=== PATIENT | male | born 1980 | race Caucasian/White ===

== ENCOUNTER 2017-09-30 09:18 | Emergency (ER) | payer BC, OTHER ==
[~2017-09-30] VITALS: Ht 177.8 cm; Wt 93.0 kg
[~2017-09-30 09:18] MED LIST: CHOL400C2 PO; CYAN10005 PO; GARL1CAP3 PO; NEBI5TAB2 PO; VITA80003 PO; ZINC10LO4 PO
[2017-09-30 09:30] VITALS: BP 135/88
[2017-09-30] MEDS ORDERED: diazePAM 5 MG TABLET PO ONE (10:15)
--- NOTE | 2017-09-30 10:42 | RAD ---
EXAM: Thoracic spine 3 views. HISTORY: Back pain. Lifting injury. COMPARISON: None. FINDINGS: Alignment is maintained. No fractures are identified. Intervertebral disc heights are maintained. IMPRESSION: 1. No fracture or malalignment.
[2017-09-30] MEDS ORDERED: DICL100G18 TP (11:06)
[2017-09-30] MEDS ORDERED: BACL10TA PO (11:06)
--- NOTE | 2017-09-30 11:06 | PHYS DOC ---
Past History Past Medical History: Hypertension, Other Past Surgical History: No Surgical History Alcohol Use: Heavy Drug Use: None Adult General Chief Complaint Chief Complaint: BACK INJURY HPI HPI Patient is a 37 year old M who presents with right-sided back pain started after lifting a heavy bucket 3 days ago. He states that he reinjured the same area all lifting an animal. His symptoms are worse with movement and improved with rest and positioning. His pain does not radiate and is not associated with any other symptoms. He does have a history of ankylosing spondylitis. Review of Systems Review of Systems Constitutional: Denies fever or chills [] Eyes: Denies change in visual acuity, redness, or eye pain [] HENT: Denies nasal congestion or sore throat [] Respiratory: Denies cough or shortness of breath [] Cardiovascular: No additional information not addressed in HPI [] GI: Denies abdominal pain, nausea, vomiting, bloody stools or diarrhea [] : Denies dysuria or hematuria [] Musculoskeletal: Negative except history of present illness Integument: Denies rash or skin lesions [] Neurologic: Denies headache, focal weakness or sensory changes [] Endocrine: Denies polyuria or polydipsia [] All other systems were reviewed and found to be within normal limits, except as documented in this note. Family History Family History No pertinent family medical history was reported Current Medications Current Medications Current Medications Medications (Trade) Dose Ordered Sig/Harman Start Time Stop Time Status Last Admin Dose Admin Diazepam (Valium) 10 mg 1X ONCE 09/30/17 10:15 09/30/17 10:16 DC 09/30/17 10:03 10 MG Allergies Allergies Allergies Coded Allergies Type Severity Reaction Last Updated Verified codeine Allergy Intermediate 05/11/14 Yes prochlorperazine Allergy Intermediate 05/11/14 Yes Physical Exam Physical Exam Constitutional: Well developed, well nourished, no acute distress, non-toxic appearance. [] HENT: Normocephalic, atraumatic Eyes: EOMI, conjunctiva normal, no discharge. [] Neck: Normal range of motion, no tenderness, supple, no stridor. [] Cardiovascular:Heart rate regular rhythm, no murmur [] Lungs & Thorax: Bilateral breath sounds clear to auscultation [] Skin: Warm, dry, no erythema, no rash. [] Back: Right thoracic paraspinal muscle spasm noted with tenderness to palpation in the area Extremities: No tenderness, no cyanosis, no clubbing, ROM intact, no edema. [] Neurologic: Alert and oriented X 3, normal motor function, normal sensory function, no focal deficits noted. [] Psychologic: Affect normal, judgement normal, mood normal. [] Current Patient Data Vital Signs Vital Signs Date Time Temp Pulse Resp B/P (MAP) Pulse Ox O2 Delivery O2 Flow Rate FiO2 09/30/17 09:30 87 16 99 Room Air EKG EKG [] Radiology/Procedures Radiology/Procedures Thoracic spine x-ray Impressions: No acute disease noted per radiology report Course & Med Decision Making Course & Med Decision Making Pertinent Labs and Imaging studies reviewed. (See chart for details) [] Dragon Disclaimer Dragon Disclaimer This electronic medical record was generated, in whole or in part, using a voice recognition dictation system. Departure Departure: Impression: Primary Impression: Spasm of thoracic back muscle Disposition: HOME, SELF-CARE Condition: STABLE Referrals: DOUGLAS HELMS (PCP) Patient Instructions: Back Exercises Additional Instructions: Villa was seen in the emergency department for back pain. No emergency medical condition was found on history or physical exam. He did have normal x-rays of his spine. His symptoms are most consistent with a muscle spasm. He is given a prescription for muscle relaxer and Voltaren gel for his pain. He was encouraged to continue daily activities and avoid heavy lifting. He was advised follow-up with his primary care doctor in the next 3-5 days for further management. Scripts Diclofenac Sodium (VOLTAREN) 100 Gm Gel..gram. 1 GM TP QID, #100 GM 2 Refills Prov: WILBER WEIR MD 09/30/17 Baclofen (BACLOFEN) 10 Mg Tablet 1 TAB PO TID for 7 Days, #21 TAB 2 Refills Prov: WILBER WEIR MD 09/30/17 WILBER WEIR MD Sep 30, 2017 11:06
== END 2017-09-30 11:12 | disposition home or self-care (01) ==
LOC: ER 09:18
DX: M62.830 Muscle spasm of back (principal); I10 Essential (primary) hypertension; F10.20 Alcohol dependence, uncomplicated; Z88.5 Allergy status to narcotic agent; Z88.8 Allergy status to other drugs, medicaments and biological substances
CPT/HCPCS: 72072; 99284

== ENCOUNTER 2018-04-02 19:18 | Emergency (ER) | payer BC ==
[~2018-04-02] VITALS: Ht 177.8 cm; Wt 88.3 kg
[~2018-04-02 19:18] MED LIST changes: +BACL10TA PO; +DICL100G18 TP
--- NOTE | 2018-04-02 19:25 | ED.ADGEN ---
Past History Past Medical History: Fibromyalgia, Hypertension, Other Past Surgical History: No Surgical History Alcohol Use: Heavy Drug Use: None Adult General Chief Complaint Chief Complaint ".. I got this back and abd. pain... Here on the Lt... more" ". I ve had lots of gut problems.. I usually have diarrhea every day.. but I have not gone today... ".." I am retired from the [employer] for my fibromyalgia and other issues... " HPI HPI Patient is a 37 year old male who presents with above hx and complaints generalized abdomen pain with some localization to Lt. lower quadrant. Pt. denies bad food intact. No hx of travel. No hx. changes meds. No hx of specific ill contacts. Pt. has hx of chronic diarrhea and irritable bowel symptoms. Pt. denies any dark stools. No hx of colon exam with biopsy. Pt. does have hx fibromyalgia. Has had recent course of antibiotics or ear infection and is on day 8 of the antibiotic. Pt. still having some dizziness associated with the bilateral ear infections. Pt. normally follows with Dr. Cruz. Review of Systems Review of Systems Constitutional: Denies fever or chills [] Eyes: Denies change in visual acuity, redness, or eye pain [] HENT: Denies nasal congestion or sore throat [] Hx. of recent ear infections. Respiratory: Denies cough or shortness of breath [] Cardiovascular: No additional information not addressed in HPI [] GI: Complaints of abdominal pain, nausea, . No vomiting, bloody stools or diarrhea [] Has some recent complaints of constipation. : Denies dysuria or hematuria [] Musculoskeletal: Denies back pain or joint pain []Chronic joint pain. Integument: Denies rash or skin lesions [] Neurologic: Hx face and headache,. Dizzy complaints , no focal weakness or sensory changes [] Endocrine: Denies polyuria or polydipsia [] All other systems were reviewed and found to be within normal limits, except as documented in this note. Family History Family History Both mother and father have kidney stones Current Medications Current Medications Current Medications Medications (Trade) Dose Ordered Sig/Harman Start Time Stop Time Status Last Admin Dose Admin Famotidine (Pepcid Vial) 20 mg 1X ONCE 04/02/18 21:00 04/02/18 21:01 DC 04/02/18 21:02 20 MG Ketorolac Tromethamine (Toradol 30mg Vial) 30 mg STK-MED ONCE 04/02/18 20:53 04/02/18 20:54 DC Lactated Ringer's 1,000 ml @ 1,000 mls/hr Q1H 04/02/18 20:40 04/02/18 21:39 DC 04/02/18 21:01 1,000 MLS/HR Magnesium Hydroxide (Milk Of Magnesia) 2,400 mg 1X ONCE 04/02/18 23:45 04/02/18 23:46 DC 04/02/18 00:09 2,400 MG Ondansetron HCl (Zofran) 8 mg 1X ONCE 04/02/18 21:00 04/02/18 21:01 DC 04/02/18 21:04 8 MG Allergies Allergies Allergies Coded Allergies Type Severity Reaction Last Updated Verified codeine Allergy Intermediate 05/11/14 Yes prochlorperazine Allergy Intermediate 05/11/14 Yes Physical Exam Physical Exam Constitutional: Well developed, well nourished, moderate to acute distress, non -toxic appearance. [] HENT: Normocephalic, atraumatic, bilateral external ears normal, oropharynx moist, no oral exudates, nose normal. []No obvious TM injection. No temporal art. tenderness Eyes: PERRLA, EOMI, conjunctiva normal, no discharge. [] Neck: Normal range of motion, no tenderness, supple, no stridor. [] Cardiovascular:Heart rate regular rhythm, no murmur [] Lungs & Thorax: Bilateral breath sounds equal at apexes on auscultation [] Abdomen: Bowel sounds normal, soft, generalized and some Lt. lower quadrant tenderness, no masses, no pulsatile masses. [] Distended. Some Lt flank pain on percussion. Skin: Warm, dry, no erythema, no rash. [] Back: No tenderness, Lt. CVA tenderness. [] Extremities: No tenderness, no cyanosis, no clubbing, ROM intact, no edema. [] No psoas or heel tap. Neurologic: Alert and oriented X 3, normal motor function, normal sensory function, no focal deficits noted. []DTR + 2 patella and brachial. Psychologic: Affect anxious, judgement normal, mood normal. [] Current Patient Data Vital Signs Vital Signs Date Time Temp Pulse Resp B/P (MAP) Pulse Ox O2 Delivery O2 Flow Rate FiO2 04/03/18 00:08 60 16 145/91 (109) 99 Room Air 04/02/18 20:09 98.0 Lab Results Laboratory Tests Test 04/02/18 20:05 04/02/18 20:41 Urine Collection Type Void Urine Color Straw Urine Clarity Clear Urine pH 6.5 Urine Specific [place] <=1.005 Urine Protein Neg (NEG-TRACE) Urine Glucose (UA) Neg mg/dL (NEG) Urine Ketones (Stick) Neg mg/dL (NEG) Urine Blood Neg (NEG) Urine Nitrite Neg (NEG) Urine Bilirubin Neg (NEG) Urine Urobilinogen Dipstick 0.2 mg/dL (0.2 mg/dL) Urine Leukocyte Esterase Neg (NEG) Urine RBC 0 /HPF (0-2) Urine WBC 0 /HPF (0-4) Urine Squamous Epithelial Cells Occ /LPF Urine Bacteria 0 /HPF (0-FEW) Urine Opiates Screen Neg (NEG) Urine Methadone Screen Neg (NEG) Urine Barbiturates Neg (NEG) Urine Phencyclidine Screen Neg (NEG) Urine Amphetamine/Methamphetamine Neg (NEG) Urine Benzodiazepines Screen Neg (NEG) Urine Cocaine Screen Neg (NEG) Urine Cannabinoids Screen Neg (NEG) Urine Ethyl Alcohol Neg (NEG) White Blood Count 7.7 x10^3/uL (4.0-11.0) Red Blood Count 4.88 x10^6/uL (4.30-5.70) Hemoglobin 16.8 g/dL (13.0-17.5) Hematocrit 47.7 % (39.0-53.0) Mean Corpuscular Volume 98 fL (79-100) Mean Corpuscular Hemoglobin 35 pg (25-35) Mean Corpuscular Hemoglobin Concent 35 g/dL (31-37) Red Cell Distribution Width 13.7 % (11.5-14.5) Platelet Count 188 x10^3/uL (140-400) Neutrophils (%) (Auto) 58 % (31-73) Lymphocytes (%) (Auto) 29 % (24-48) Monocytes (%) (Auto) 10 % (0-9) H Eosinophils (%) (Auto) 2 % (0-3) Basophils (%) (Auto) 1 % (0-3) Neutrophils # (Auto) 4.5 x10^3uL (1.8-7.7) Lymphocytes # (Auto) 2.2 x10^3/uL (1.0-4.8) Monocytes # (Auto) 0.8 x10^3/uL (0.0-1.1) Eosinophils # (Auto) 0.2 x10^3/uL (0.0-0.7) Basophils # (Auto) 0.1 x10^3/uL (0.0-0.2) Prothrombin Time 10.3 SEC (9.4-11.4) Prothrombin Time INR 1.0 (0.9-1.1) PTT 26 SEC (23-33) Sodium Level 140 mmol/L (136-145) Potassium Level 4.7 mmol/L (3.5-5.1) Chloride Level 102 mmol/L (98-107) Carbon Dioxide Level 30 mmol/L (21-32) Anion Gap 8 (6-14) Blood Urea Nitrogen 13 mg/dL (8-26) Creatinine 0.9 mg/dL (0.7-1.3) Estimated GFR (Cockcroft-Gault) 93.9 Glucose Level 85 mg/dL (70-99) Calcium Level 9.2 mg/dL (8.5-10.1) Total Bilirubin 0.6 mg/dL (0.2-1.0) Direct Bilirubin 0.1 mg/dL (0.0-0.2) Aspartate Amino Transferase (AST) 50 U/L (15-37) H Alanine Aminotransferase (ALT) 61 U/L (16-63) Alkaline Phosphatase 89 U/L (46-116) Total Protein 7.6 g/dL (6.4-8.2) Albumin 4.2 g/dL (3.4-5.0) Lipase 185 U/L (73-393) EKG EKG [] Radiology/Procedures Radiology/Procedures My interpretation of Acute abd. film shows increased stool. No free air under the diaphragm. CT of abd. Show no acute surgical process. No hydronephrosis. Increased stool. [] Course & Med Decision Making Course & Med Decision Making Pertinent Labs and Imaging studies reviewed. (See chart for details) Finish current antibiotics. Tylenol and Ibuprofen for pain. Clear fluid diet only x 48 hrs. Expect some diarrhea with the MOM. Return if continue pain for CT with contrast- eval. for other bowel problems. Consider Colon exam and biopsy. Return if any concerns. [] Final Impression Final Impression 1. Abd. Pain - Renal colic?[] 2. Hx Irritable Bowel 3. Fibromyalgia 4. Hx of recent Bilateral Ear Infections- on day 8 of antibiotics. 5. Elevated AST =50 6. Constipation Dragon Disclaimer Dragon Disclaimer This electronic medical record was generated, in whole or in part, using a voice recognition dictation system. DANITA MUNGUIA MD Apr 02, 2018 19:25
[2018-04-02] MEDS ORDERED: IV RINGERS SOLUTION,LACTATED 1,000 ML IV SCH (20:40)
[2018-04-02] MEDS ORDERED: KETOROLAC 30 MG/ML VIAL. ONE (20:53)
[2018-04-02 20:55] LABS: BARBITURATES NEG (NEG); BENZODIAZEPINES NEG (NEG); CANNABINOIDS NEG (NEG); COCAINE NEG (NEG); METHADONE NEG (NEG); OPIATES NEG (NEG); PHENCYCLIDINE NEG (NEG)
[2018-04-02 20:56] LABS: AMPHETAMINE/METHAMPHETAMINE NEG (NEG)
[2018-04-02 20:57] LABS: BACTERIA,URINE 0 /HPF (0-FEW); BILIRUBIN,URINE NEG (NEG); CLARITY,URINE CLEAR; COLOR,URINE STRAW; GLUCOSE,URINE NEG (NEG); NITRITE,URINE NEG (NEG); RBC,URINE 0 /HPF (0-2); SQUAMOUS EPITHELIAL CELL,UR OCC /LPF; UROBILINOGEN,URINE 0.2 mg/dL (0.2 mg/dL); WBC,URINE 0 /HPF (0-4)
[2018-04-02] MEDS ORDERED: ONDANSETRON PF 4 MG/2 ML VIAL. IV ONE (21:00)
[2018-04-02] MEDS ORDERED: KETOROLAC 30 MG/ML VIAL. IV ONE (21:00)
[2018-04-02] MEDS ORDERED: FAMOTIDINE 20 MG/2 ML VIAL IVP ONE (21:00)
[2018-04-02 21:01] LABS: BASO # 0.1 x10^3/uL (0.0-0.2); BASO % 1 % (0-3); EOS # 0.2 x10^3/uL (0.0-0.7); EOS % 2 % (0-3); HEMATOCRIT 47.7 % (39.0-53.0); HEMOGLOBIN 16.8 g/dL (13.0-17.5); LYMPH # 2.2 x10^3/uL (1.0-4.8); LYMPH % 29 % (24-48); MEAN CORPUSCULAR HEMOGLOBIN 35 pg (25-35); MEAN CORPUSCULAR HGB CONC 35 g/dL (31-37); MEAN CORPUSCULAR VOLUME 98 fL (79-100); MONO # 0.8 x10^3/uL (0.0-1.1); MONO % 10 % (0-9); NEUT # 4.5 x10^3uL (1.8-7.7); NEUT % 58 % (31-73); PLATELET COUNT 188 x10^3/uL (140-400); RED BLOOD COUNT 4.88 x10^6/uL (4.30-5.70); RED CELL DISTRIBUTION WIDTH 13.7 % (11.5-14.5); WHITE BLOOD COUNT 7.7 x10^3/uL (4.0-11.0)
[2018-04-02 21:12] LABS: ALBUMIN 4.2 g/dL (3.4-5.0); CALCIUM 9.2 mg/dL (8.5-10.1); CREATININE 0.9 mg/dL (0.7-1.3); DIRECT BILIRUBIN 0.1 mg/dL (0.0-0.2); GFR 93.9; POTASSIUM 4.7 mmol/L (3.5-5.1); TOTAL BILIRUBIN 0.6 mg/dL (0.2-1.0); TOTAL PROTEIN 7.6 g/dL (6.4-8.2)
--- NOTE | 2018-04-02 22:14 | RAD ---
PQRS Compliance statement: One or more of the following individualized dose reduction techniques were utilized for this examination: 1. Automated exposure control. 2. Adjustment of the mA and/or kV according to patient size. 3. Use of iterative reconstruction technique. Indication:low pelvic pain, left flank pain
no surgery hx TECHNIQUE: CT abdomen and pelvis without IV contrast with multiplanar reformats. COMPARISON: 05/11/2014 FINDINGS: Limited exam due to lack of IV contrast. Heart is normal in size. Clear lung bases. Noncontrast appearance of the liver, spleen, gallbladder, pancreas, adrenals and kidneys is within normal limits. No nephrolithiasis or hydronephrosis. No retroperitoneal or pelvic adenopathy. No free pelvic fluid or ascites. No bowel obstruction. Normal appendix. Urinary bladder within normal limits. Prostate and seminal vesicles show no mass lesion. Bilateral varicoceles. No suspicious bony lesion. IMPRESSION: Limited exam due to lack of IV contrast. 1. No nephrolithiasis or hydronephrosis. 2. No bowel obstruction. Normal appendix. Electronically signed by: Keith Lester DO (04/02/2018 10:11 PM) [facility]
--- NOTE | 2018-04-02 22:26 | RAD ---
Indication: Low pelvic pain, left flank pain. TECHNIQUE: AP chest and 3 views of the abdomen and pelvis COMPARISON: CT from the same day FINDINGS: Heart is normal in size. Lungs are clear. No pneumothorax or pleural effusion. No pneumoperitoneum. No bowel obstruction. No abnormal calcific densities projecting over the kidneys or expected course of the ureters. Visualized bones are within normal limits. IMPRESSION: No acute findings. Electronically signed by: Keith Lester DO (04/02/2018 10:23 PM) [facility]
[2018-04-02] MEDS ORDERED: HYDR-79 PO (23:21)
[2018-04-02] MEDS ORDERED: MAGNESIUM HYDROXIDE 2,400 MG/30 ML ORAL.SUSP. PO ONE (23:45)
[2018-04-03 00:08] VITALS: BP 145/91
== END 2018-04-03 00:15 | disposition home or self-care (01) ==
LOC: ER 19:18
DX: K59.00 Constipation, unspecified (principal); R42 Dizziness and giddiness; M79.7 Fibromyalgia; K58.9 Irritable bowel syndrome, unspecified; R74.0 Nonspecific elevation of levels of transaminase and lactic acid dehydrogenase [LDH]; I10 Essential (primary) hypertension; F10.20 Alcohol dependence, uncomplicated; Z88.5 Allergy status to narcotic agent; Z88.8 Allergy status to other drugs, medicaments and biological substances; Y90.9 Presence of alcohol in blood, level not specified
CPT/HCPCS: 36415; 74022; 74176; 80048; 80076; 80307; 81001; 83690; 85025; 85610; 85730; 96361; 96374; 96375; 99285; J1885; J2405; J7120; S0028; G0479

== ENCOUNTER → 2019-01-17 | Outpatient (CLI) | payer BC ==
[~2019-01-17] MED LIST changes: +HYDR-1179 PO
[2019-01-17 13:19] LABS: ALBUMIN 4.2 g/dL (3.4-5.0); CALCIUM 9.2 mg/dL (8.5-10.1); CREATININE 1.1 mg/dL (0.7-1.3); GFR 74.1; POTASSIUM 4.1 mmol/L (3.5-5.1); TOTAL BILIRUBIN 0.5 mg/dL (0.2-1.0); TOTAL PROTEIN 8.4 g/dL (6.4-8.2)
[2019-01-18 11:19] LABS: HDLC 37 mg/dL (40-60); TRIGLYCERIDES 696 mg/dL (0-150); VLDLC 139 mg/dL (0-40)
== END | disposition home or self-care (01) ==
LOC: LAB 12:35
PROVIDERS: ATTEND Nurse Practitioner
DX: E78.5 Hyperlipidemia, unspecified (principal)
CPT/HCPCS: 36415; 80053; 80061

== ENCOUNTER → 2019-07-24 | Outpatient (CLI) | payer BC ==
[~2019-07-24] MED LIST changes: +CYAN-25 PO; -CYAN10005 PO
--- NOTE | 2019-07-24 18:16 | RAD ---
3 view study of the left hand Clinical indications: Left hand pain. Injury last night. Pain in the third and fifth digits. FINDINGS: No acute fracture or dislocation or lytic process is evident. No erosive arthritic change is evident. No radiopaque foreign body is evident. IMPRESSION: No acute osseous abnormality. Electronically signed by: Kevin Treviño MD (07/24/2019 6:13 PM) [id number]
== END | disposition home or self-care (01) ==
LOC: PMG 11:03
PROVIDERS: ATTEND Physician Assistant
DX: M79.642 Pain in left hand (principal); X58.XXXA Exposure to other specified factors, initial encounter; Y93.89 Activity, other specified; Y92.89 Other specified places as the place of occurrence of the external cause; Y99.8 Other external cause status
CPT/HCPCS: 73130

== ENCOUNTER → 2019-11-05 | Outpatient (CLI) | payer BC ==
[2019-11-05 12:29] LABS: BASO # 0.1 x10^3/uL (0.0-0.2); BASO % 1 % (0-3); EOS # 0.2 x10^3/uL (0.0-0.7); EOS % 2 % (0-3); HEMATOCRIT 50.9 % (39.0-53.0); HEMOGLOBIN 17.7 g/dL (13.0-17.5); LYMPH # 2.8 x10^3/uL (1.0-4.8); LYMPH % 35 % (24-48); MEAN CORPUSCULAR HEMOGLOBIN 34 pg (25-35); MEAN CORPUSCULAR HGB CONC 35 g/dL (31-37); MEAN CORPUSCULAR VOLUME 98 fL (79-100); MONO # 0.7 x10^3/uL (0.0-1.1); MONO % 9 % (0-9); NEUT # 4.1 x10^3uL (1.8-7.7); NEUT % 52 % (31-73); PLATELET COUNT 239 x10^3/uL (140-400); RED BLOOD COUNT 5.17 x10^6/uL (4.30-5.70); RED CELL DISTRIBUTION WIDTH 13.3 % (11.5-14.5); WHITE BLOOD COUNT 7.9 x10^3/uL (4.0-11.0)
[2019-11-06 00:06] LABS: DHEA SO4 448.8 ug/dL (102.6-416.3); ESTRADIOL LEVEL 23.9 pg/mL (7.6-42.6); LUTEINIZING HORMONE 0.2 mIU/mL (1.7-8.6); TESTOSTERONE TOTAL 297 ng/dL (264-916)
[2019-11-06 16:30] LABS: FREE T4 1.08 ng/dL (0.76-1.46); THYROID STIM HORMONE (TSH) 2.972 uIU/mL (0.358-3.740)
== END | disposition home or self-care (01) ==
LOC: LAB 10:52
PROVIDERS: ATTEND Internal Medicine
DX: E29.1 Testicular hypofunction (principal); E34.9 Endocrine disorder, unspecified; E03.9 Hypothyroidism, unspecified; E55.9 Vitamin D deficiency, unspecified; E53.8 Deficiency of other specified B group vitamins; Z12.5 Encounter for screening for malignant neoplasm of prostate
CPT/HCPCS: 36415; 82306; 82607; 82627; 82670; 83002; 83615; 84403; 84439; 84443; 84481; 85025; G0103

== ENCOUNTER → 2020-05-18 | Outpatient (CLI) | payer BC ==
[2020-05-18 11:38] LABS: BASO % 0 % (0-3); EOS # 0.2 x10^3/uL (0.0-0.7); EOS % 3 % (0-3); HEMOGLOBIN 17.2 g/dL (13.0-17.5); LYMPH # 2.4 x10^3/uL (1.0-4.8); LYMPH % 34 % (24-48); MEAN CORPUSCULAR HEMOGLOBIN 35 pg (25-35); MEAN CORPUSCULAR HGB CONC 34 g/dL (31-37); MEAN CORPUSCULAR VOLUME 101 fL (79-100); MONO # 0.6 x10^3/uL (0.0-1.1); MONO % 9 % (0-9); NEUT # 3.9 x10^3uL (1.8-7.7); NEUT % 55 % (31-73); PLATELET COUNT 236 x10^3/uL (140-400); RED BLOOD COUNT 4.98 x10^6/uL (4.30-5.70); RED CELL DISTRIBUTION WIDTH 13.1 % (11.5-14.5); WHITE BLOOD COUNT 7.2 x10^3/uL (4.0-11.0)
[2020-05-18 16:27] LABS: CALCIUM 9.3 mg/dL (8.5-10.1); CREATININE 1.1 mg/dL (0.7-1.3); GFR 73.8; POTASSIUM 4.1 mmol/L (3.5-5.1)
[2020-05-19 02:07] LABS: ESTRADIOL LEVEL 18.4 pg/mL (7.6-42.6); TESTOSTERONE TOTAL 309 ng/dL (264-916)
[2020-05-19 15:40] LABS: FREE T4 0.87 ng/dL (0.76-1.46); THYROID STIM HORMONE (TSH) 2.319 uIU/mL (0.358-3.740)
== END | disposition home or self-care (01) ==
LOC: LAB 10:43
PROVIDERS: ATTEND Internal Medicine
DX: E29.1 Testicular hypofunction (principal); E34.9 Endocrine disorder, unspecified; E03.9 Hypothyroidism, unspecified; E27.40 Unspecified adrenocortical insufficiency; R53.83 Other fatigue; I25.9 Chronic ischemic heart disease, unspecified
CPT/HCPCS: 36415; 80048; 80061; 82306; 82607; 82626; 82670; 84403; 84439; 84443; 84481; 85025

== ENCOUNTER 2020-07-01 13:36 | Emergency (ER) | payer BC ==
[~2020-07-01] VITALS: Ht 177.8 cm; Wt 81.0 kg
[2020-07-01] MEDS ORDERED: IOHEXOL 300 MG/ML 75 ML VIAL. IV ONE (14:15)
[2020-07-01] MEDS ORDERED: HYDROmorphone PF 1 MG/ML DISP.SYRIN IM ONE ×2 (14:15→15:15)
[2020-07-01] MEDS ORDERED: LIDOCAINE (700MG/PATCH) PATCH. TD SCH (14:30)
[2020-07-01] MEDS ORDERED: CONTRAST GIVEN. MC PRN (14:45)
--- NOTE | 2020-07-01 15:12 | PHYS DOC ---
Past History Past Medical History: Fibromyalgia, Hypertension, Other Past Surgical History: Other Alcohol Use: Heavy Drug Use: None General Adult EDM: Chief Complaint: RIB PAIN HPI: HPI: 39 yo M PMH HTN and fibromyalgia presents to the ed with c/o left lower anterior and posterior rib pain after accidental slip/fall on wet bathroom floor, fell backwards and hit his back/landed on the shower tub. No head injury or LOC. On no AC. Was not intoxicated at the time of injury. Pain worsens with deep respirations. Review of Systems: Review of Systems: Constitutional: Denies fever or chills Eyes: Denies change in visual acuity HENT: Denies nasal congestion or sore throat Respiratory: Denies cough or hemoptysis Cardiovascular: Denies chest pain or edema GI: Denies nausea, vomiting, bloody stools or diarrhea : Denies dysuria Musculoskeletal: Denies joint pain or swelling Integument: Denies rash Neurologic: Denies headache, midline neck pain, focal weakness or sensory changes Endocrine: Denies polyuria or polydipsia Lymphatic: Denies swollen glands Psychiatric: Denies depression or anxiety Current Medications: Current Meds: Current Medications Medications (Trade) Dose Ordered Sig/Harman Start Time Stop Time Status Last Admin Dose Admin Hydromorphone HCl (Dilaudid) 0.5 mg 1X ONCE 07/01/20 15:15 07/01/20 15:16 Info (Do NOT chart on this entry -- for MONITORING) 1 each PRN DAILY PRN 07/01/20 14:45 07/03/20 14:44 Iohexol (Omnipaque 300 Mg/ml) 75 ml 1X ONCE 07/01/20 14:15 07/01/20 14:30 DC Lidocaine (Lidoderm) 1 patch DAILY 07/01/20 14:30 Miscellaneous (Lidoderm Patch Removal) 1 ea QHS 07/01/20 21:00 Allergies: Allergies: Allergies Coded Allergies Type Severity Reaction Last Updated Verified codeine Allergy Intermediate 07/01/20 Yes prochlorperazine Allergy Intermediate 07/01/20 Yes Physical Exam: PE: Constitutional: ambulates to ed room but uncomfortable in stretcher, c/o severe pain with very light touch-repeat exams not consistent with same location of pain each time HENT: Normocephalic, atraumatic, no midline neck pain Eyes: PERRLA, EOMI, conjunctiva normal, no discharge. [] Neck: Normal range of motion, no tenderness, supple, no stridor. [] Cardiovascular:Heart rate regular rhythm, no murmur [] Lungs & Thorax: Bilateral breath sounds clear to auscultation [] left anterior posterior rib tenderness with no flail chest or crepitus Abdomen: Bowel sounds normal, soft, pain over left lumbar back and left upper quadrant (later with no abdominal or back pain) Skin: Warm, dry, no erythema, no rash. [] Back: No midline tenderness, no saddle anesthesia Extremities: No tenderness, no cyanosis, no clubbing, ROM intact, no edema. [] Neurologic: Alert and oriented X 3, normal motor function, normal sensory function, no focal deficits noted. [] Psychologic: Affect normal, judgement normal, mood normal. [] Nexus C-spine criteria are negative: There is no post midline tenderness, the patient is not intoxicated, there is a normal level of alertness, there are no focal neurologic deficits and there are no distracting injuries. Current Patient Data: Vital Signs: Vital Signs Date Time Temp Pulse Resp B/P (MAP) Pulse Ox O2 Delivery O2 Flow Rate FiO2 07/01/20 14:51 24 99 07/01/20 13:40 97.2 78 124/64 (84) EKG: EKG: [] Radiology/Procedures: Radiology/Procedures: IMAGING REPORT Signed PATIENT: CIRILO QUEEN ACCOUNT: [id number] : 1980 LOCATION: ER AGE: 39 SEX: M EXAM STATUS: REG ER ORD. PHYSICIAN: KEIRA ANNE DO REASON: left rib pain/luq abd pain, s/p fall PROCEDURE: CT CHEST ABD PELVIS W/CONTRAST Examination: CT CHEST ABD PELVIS W/CONTRAST History: left rib pain/luq abd pain, s/p fall Comparison/Correlation: None Findings: Axial images of the chest, abdomen, and pelvis were obtained following IV contrast. Sagittal and coronal reformatted images were provided. Axial images of the chest, abdomen, and pelvis were obtained following IV contrast. Sagittal and coronal reformatted images were provided. Minimal bullous involvement of the lung apices noted. No infiltrate. No suspicious pulmonary nodule or mass. No pneumothorax. No enlarged nodes. Thoracic aorta is unremarkable. Bony thorax is unremarkable. Liver, spleen, pancreas, adrenal glands, and kidneys are normal. The gallbladder fossa is unremarkable. Appendix is normal. No bowel obstruction or inflammatory findings. No extraluminal gas. Urinary bladder is unremarkable. 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 No acute bony process. Impression: No rib fracture or abdominal organ laceration. No infiltrate. PQRS Compliance Statement: One or more of the following individualized dose reduction techniques were utilized for this examination: 1. Automated exposure control 2. Adjustment of the mA and/or kV according to patient size 3. Use of iterative reconstruction technique Electronically signed by: John Melton MD (07/01/2020 4:44 PM) [facility] DICTATED AND SIGNED BY: JOHN MELTON MD DATE: 07/01/20 9868 CC: DOUGLAS HELMS; [facility] ~MTH0 0 Heart Score: Risk Factors: Risk Factors: DM, Current or recent (<one month) smoker, HTN, HLP, family history of CAD, obesity. Risk Scores: Score 0 - 3: 2.5% MACE over next 6 weeks - Discharge Home Score 4 - 6: 20.3% MACE over next 6 weeks - Admit for Clinical Observation Score 7 - 10: 72.7% MACE over next 6 weeks - Early Invasive Strategies Course & Med Decision Making: Course & Med Decision Making Pertinent Labs and Imaging studies reviewed. (See chart for details) Concern for musculoskeletal injury, likely spasms. Patient reports demerol is only medication that helps for his pain (after 1mg dilaudid), morphine is not enough (when he had surgery on his right hand which has no scars). Denies being on any outpatient narcotic medications. CT imaging negative for any traumatic injury. Normal aorta diameter on CT imaging. Will DC home with muscle relaxers and Lidoderm patch. Strict ED return precautions were given for neurologic deficits, saddle anesthesia, syncope or chest pain. Encouraged urgent outpatient follow-up with PMD. Life-threatening processes were considered but are low suspicion at this time, given history and physical exam. Pt was educated on all prescription medications and adverse effects. All patient's questions were answered and pt was stable at time of discharge. Life/limb-threatening differential includes but is not limited to, intracranial hemorrhage, diffuse axonal injury, spinal cord syndrome, unstable cervical fracture or SCIWORA, fractures or joint dislocations, neurovascular injuries, organ injury or laceration, pneumothorax, pneumoperitoneum, pericardial tamponade, unstable pelvic fracture, compartment syndrome, flail chest or respiratory distress, burn injury or asphyxiation I spoken with the patient and her caregivers. I explained the patient's condition, diagnoses and treatment plan based on the information available to me at this time. I have answered the patient and her caregiver's questions and addressed any concerns. The patient and her caregivers have a good understanding of patient's diagnosis, condition and treatment plan as can be expected at this point. Vital signs have been stable. Patient's condition is stable and appropriate for discharge from the emergency department. Patient will pursue further outpatient evaluation with primary care physician or other designated or consulting physician as outlined in the discharge instructions. The patient and/or caregivers are agreeable to this plan of care and follow-up instructions have been explained in detail. The patient and/or caregivers have received these instructions in written form and have expressed an understanding of the discharge instructions. The patient and/or caregivers are aware that any significant change of condition or worsening of symptoms should prompt immediate return to this or the closest emergency department or call to [phone]. Marie Disclaimer: Marie Disclaimer: This electronic medical record was generated, in whole or in part, using a voice recognition dictation system. Departure Departure: Impression: Primary Impression: Rib pain on left side Additional Impressions: Contusion Muscle spasm of back Disposition: 01 DC HOME SELF CARE/HOMELESS Condition: STABLE Referrals: DOUGLAS HELMS (PCP) Patient Instructions: Muscle Strain, Rib Contusion Additional Instructions: EMERGENCY DEPARTMENT GENERAL DISCHARGE INSTRUCTIONS Thank you for coming to [facility] (ED) today and trusting us with you care. We trust that you had a positivie experience in our Emergency Department. If you wish to speak to the department management, you may call the director at [phone]. YOUR FOLLOW UP INSTRUCTIONS ARE FOLLOWS: 1. Do you have a private Doctor? If you do not have a private doctor, please ask for a resource list of physicians or clinics that may be able to assist you with follow up care. 2. The Emergency Physician has interpreted your x-rays. The X-Ray specialist will also review them. If there is a change in the findings, you will be notified in 48 hours when at all possible. 3. A lab test or culture has been done, your results will be reviewed and you will be notified if you need a change in treatment. ADDITIONAL INSTRUCTIONS AND INFORMATION: 1. Your care today has been supervised by a physician who is specially trained in emergency care. Many problems require more than one evaluation for a complete diagnosis and treatment. We recommend that you schedule your follow up appointment as recommended to ensure complete treatment of you illness or injury. If you are unable to obtain follow up care and continue to have a problem, or if your condition worsens, we recommend that you return to the ED. 2. We are not able to safely determine your condition over the phone nor are we able to give sound medical advice over the phone. For these safety reasons, if you call for medical advice we will ask you to come to the ED for further evaluation. 3. If you have any questions regarding these discharge instructions please call the ED at [phone]. SAFETY INFORMATION: In the interest of safety, wellness, and injury prevention; we encourage you to wear your sealbelt, if you smoke; quite smoking, and we encourage family to use a protective helmet for bicycling and other sporting events that present an increased risk for head injury. IF YOUR SYMPTOMS WORSEN OR NEW SYMPTOMS DEVELOP, OR YOU HAVE CONCERNS ABOUT YOUR CONDITION; OR IF YOUR CONDITION WORSENS WHILE YOU ARE WAITING FOR YOUR FOLLOW UP APPOINTMENT; EITHER CONTACT YOUR PRIMARY CARE DOCTOR, THE PHYSICIAN WHOSE NAME AND NUMBER YOU WERE GIVEN, OR RETURN TO THE ED IMMEDIATELY. Scripts Ibuprofen (IBUPROFEN) 600 Mg Tablet 600 MG PO Q6HRS for headache, #20 TAB Prov: KEIRA ANNE DO 07/01/20 Cyclobenzaprine Hcl (CYCLOBENZAPRINE HCL) 10 Mg Tablet 1 TAB PO TID PRN for MUSCLE SPASMS, #15 TAB Prov: KEIRA ANNE DO 07/01/20 KEIRA ANNE DO Jul 01, 2020 15:12
[2020-07-01] MEDS ORDERED: HYDROmorphone PF 1 MG/ML DISP.SYRIN IVP ONE (15:15)
[2020-07-01] MEDS ORDERED: KETAMINE HCL IN NACL, ISO-OSM 50 MG/5 ML SYRINGE IV ONE (15:45)
[2020-07-01 15:54] LABS: BASO # 0.1 x10^3/uL (0.0-0.2); BASO % 1 % (0-3); EOS # 0.2 x10^3/uL (0.0-0.7); EOS % 1 % (0-3); HEMATOCRIT 49.2 % (39.0-53.0); HEMOGLOBIN 16.5 g/dL (13.0-17.5); LYMPH # 2.6 x10^3/uL (1.0-4.8); LYMPH % 23 % (24-48); MEAN CORPUSCULAR HEMOGLOBIN 34 pg (25-35); MEAN CORPUSCULAR HGB CONC 34 g/dL (31-37); MEAN CORPUSCULAR VOLUME 100 fL (79-100); MONO % 8 % (0-9); NEUT # 7.6 x10^3uL (1.8-7.7); NEUT % 66 % (31-73); PLATELET COUNT 242 x10^3/uL (140-400); RED BLOOD COUNT 4.93 x10^6/uL (4.30-5.70); WHITE BLOOD COUNT 11.5 x10^3/uL (4.0-11.0)
[2020-07-01 15:56] LABS: CALCIUM 9.3 mg/dL (8.5-10.1); CREATININE 1.3 mg/dL (0.7-1.3); GFR 60.8; POTASSIUM 4.4 mmol/L (3.5-5.1)
[2020-07-01 16:02] LABS: ALBUMIN 3.9 g/dL (3.4-5.0); TOTAL BILIRUBIN 0.3 mg/dL (0.2-1.0); TOTAL PROTEIN 7.7 g/dL (6.4-8.2)
[2020-07-01 16:41] VITALS: BP 129/72
--- NOTE | 2020-07-01 16:47 | RAD ---
Examination: CT CHEST ABD PELVIS W/CONTRAST History: left rib pain/luq abd pain, s/p fall Comparison/Correlation: None Findings: Axial images of the chest, abdomen, and pelvis were obtained following IV contrast. Sagittal and coronal reformatted images were provided. Axial images of the chest, abdomen, and pelvis were obtained following IV contrast. Sagittal and coronal reformatted images were provided. Minimal bullous involvement of the lung apices noted. No infiltrate. No suspicious pulmonary nodule or mass. No pneumothorax. No enlarged nodes. Thoracic aorta is unremarkable. Bony thorax is unremarkable. Liver, spleen, pancreas, adrenal glands, and kidneys are normal. The gallbladder fossa is unremarkable. Appendix is normal. No bowel obstruction or inflammatory findings. No extraluminal gas. Urinary bladder is unremarkable. 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 No acute bony process. Impression: No rib fracture or abdominal organ laceration. No infiltrate. PQRS Compliance Statement: One or more of the following individualized dose reduction techniques were utilized for this examination: 1. Automated exposure control 2. Adjustment of the mA and/or kV according to patient size 3. Use of iterative reconstruction technique Electronically signed by: John Miles MD (07/01/2020 4:44 PM) [facility]
[2020-07-01] MEDS ORDERED: CYCL-331 PO (16:56)
[2020-07-01] MEDS ORDERED: IBUP600T16 PO (16:56)
[2020-07-01] MEDS ORDERED: PATCH REMOVAL. MC SCH (21:00)
== END 2020-07-01 17:16 | disposition home or self-care (01) ==
LOC: ER 13:36
DX: S20.212A Contusion of left front wall of thorax, initial encounter (principal); M62.830 Muscle spasm of back; M79.7 Fibromyalgia; I10 Essential (primary) hypertension; F10.20 Alcohol dependence, uncomplicated; Z88.5 Allergy status to narcotic agent; Z88.8 Allergy status to other drugs, medicaments and biological substances; Y90.9 Presence of alcohol in blood, level not specified; W01.0XXA Fall on same level from slipping, tripping and stumbling without subsequent striking against object, initial encounter; Y93.89 Activity, other specified; Y92.89 Other specified places as the place of occurrence of the external cause; Y99.8 Other external cause status
CPT/HCPCS: 36415; 71260; 74177; 80053; 85025; 85610; 85730; 96372; 96374; 96375; 99285; J1170; Q9967

== ENCOUNTER → 2020-07-28 | Outpatient (CLI) | payer BC ==
[2020-07-01 16:41] VITALS: BP 129/72
[~2020-07-28] MED LIST changes: +CYCL-331 PO; +IBUP600T16 PO
[2020-07-28 14:24] LABS: BASO % 1 % (0-3); EOS # 0.1 x10^3/uL (0.0-0.7); EOS % 3 % (0-3); HEMATOCRIT 49.3 % (39.0-53.0); HEMOGLOBIN 16.8 g/dL (13.0-17.5); LYMPH # 2.2 x10^3/uL (1.0-4.8); LYMPH % 39 % (24-48); MEAN CORPUSCULAR HEMOGLOBIN 34 pg (25-35); MEAN CORPUSCULAR HGB CONC 34 g/dL (31-37); MEAN CORPUSCULAR VOLUME 100 fL (79-100); MONO # 0.5 x10^3/uL (0.0-1.1); MONO % 9 % (0-9); NEUT # 2.8 x10^3uL (1.8-7.7); NEUT % 49 % (31-73); PLATELET COUNT 226 x10^3/uL (140-400); RED BLOOD COUNT 4.94 x10^6/uL (4.30-5.70); RED CELL DISTRIBUTION WIDTH 12.8 % (11.5-14.5); WHITE BLOOD COUNT 5.7 x10^3/uL (4.0-11.0)
[2020-07-29 01:07] LABS: DHEA SO4 497.2 ug/dL (102.6-416.3); ESTRADIOL LEVEL 28.7 pg/mL (7.6-42.6); TESTOSTERONE TOTAL 298 ng/dL (264-916)
[2020-07-29 15:09] LABS: FREE T4 0.99 ng/dL (0.76-1.46); THYROID STIM HORMONE (TSH) 1.759 uIU/mL (0.358-3.740)
== END ==
LOC: LAB 13:26
PROVIDERS: ATTEND Internal Medicine
DX: E29.1 Testicular hypofunction (principal); E34.9 Endocrine disorder, unspecified
CPT/HCPCS: 36415; 82306; 82607; 82627; 82670; 84403; 84439; 84443; 84481; 85025

== ENCOUNTER → 2020-10-28 | Outpatient (CLI) | payer BC ==
[2020-10-29 14:32] LABS: FREE T4 0.98 ng/dL (0.76-1.46); THYROID STIM HORMONE (TSH) 1.107 uIU/mL (0.358-3.740)
[2020-11-04 08:09] LABS: TESTOSTERONE FREE 2.86 ng/dL (5.00-21.00); TESTOSTERONE TOTAL 97 ng/dL (264-916)
== END ==
LOC: LAB 11:51
PROVIDERS: ATTEND Internal Medicine
DX: E03.9 Hypothyroidism, unspecified (principal); E55.9 Vitamin D deficiency, unspecified; E29.1 Testicular hypofunction; E53.8 Deficiency of other specified B group vitamins
CPT/HCPCS: 80061; 84402; 84403; 84439; 84443; 84481